=== PATIENT | male | born 1965 | race Caucasian/White ===

== ENCOUNTER 2023-02-09 07:23 | Emergency (ER) | payer BC, SELFPAY ==
[2023-02-09 07:27] VITALS: BP 150/93; PULSE 95; RESP 16; TEMP 36.2; O2SAT 100; BMI 28.7
--- NOTE | 2023-02-09 08:09 | ED.GENADULT ---
HPI - General Adult General Chief complaint: Laceration/Wound Stated complaint: Laceration L pointer Time Seen by Provider: 02/09/23 07:33 History of Present Illness HPI narrative: Patient is a 57 year white male who accidentally cut the tip of his index finger on the left-hand avulse some skin. He was using a knife in the kitchen. He is up-to-date on tetanus. He is otherwise quite healthy. No other problems. He bled a little bit now it has seemed to have stopped a bit. Related Data Home Medications Medication Instructions Recorded Confirmed amlodipine 5 mg tablet 5 mg PO QDAY 10/18/22 02/09/23 simvastatin 20 mg tablet 20 mg PO QHS 10/18/22 02/09/23 amlodipine 10 mg tablet 10 mg PO DAILY 02/09/23 02/09/23 Allergies Allergy/AdvReac Type Severity Reaction Status Date / Time No Known Drug Allergies Allergy Verified 02/09/23 07:32 Review of Systems Narrative: No history of diabetes or other infection problems PFSH PFSH Social History Smoking Status: Never smoker Do you use any of these nicotine containing products: None Second hand tobacco smoke exposure: No How often do you have a drink containing alcohol: never AUDIT-C Alcohol total score: 0 Non-prescribed substance use: denies use Exam Narrative: Exam Narrative: Objective: Vital signs as above Index finger shows an avulsion of skin on the lateral aspect of the tip of the finger very superficial. Minimal bleeding. Range of motion of finger normal Const: Vital Signs, click to edit/add: Vital Signs - 24 hr 02/09/23 07:27 Temperature 97.2 F L Pulse Rate [Right Pulse Oximeter] 95 Respiratory Rate 16 Blood Pressure [Ri ght Upper Arm] 150/93 H Pulse Oximetry 100 Oxygen Delivery Me thod Room Air Course Vital Signs Vital signs: Initial Vital Signs Temperature 97.2 F L 02/09/23 07:27 Temperature Source Temporal Artery Scan 02/09/23 07:27 Pulse Rate 95 02/09/23 07:27 Respiratory Rate 16 02/09/23 07:27 Blood Pressure 150/93 H 02/09/23 07:27 Blood Pressure Mean 112 H 02/09/23 07:27 Blood Pressure Position Sitting 02/09/23 07:27 Pulse Oximetry 100 02/09/23 07:27 Oxygen Delivery Method Room Air 02/09/23 07:27 Vital Signs Temperature 97.2 F L 02/09/23 07:27 Pulse Rate 95 02/09/23 07:27 Respiratory Rate 16 02/09/23 07:27 Blood Pressure 150/93 H 02/09/23 07:27 Pulse Oximetry 100 02/09/23 07:27 Oxygen Delivery Method Room Air 02/09/23 07:27 Temperature 97.2 F L 02/09/23 07:27 Pulse Rate 95 02/09/23 07:27 Respiratory Rate 16 02/09/23 07:27 Blood Pressure 150/93 H 02/09/23 07:27 Pulse Oximetry 100 02/09/23 07:27 Oxygen Delivery Method Room Air 02/09/23 07:27 Medical Decision Making MDM Narrative Medical decision making narrative: Patient is a 57 year white male up-to-date on tetanus avulsed the tip of his finger skin of the index finger. It does not appear deep or involving musculature. After sterile soaking, Surgicel was placed over the wound and covered with gauze. The patient tolerated this well. He is up-to-date on tetanus as mention. Will keep this on for 3 days and watch for infection redness. Return as needed. Then cover with a bandage after 3 days. Discharge Plan Discharge Clinical Impression: Avulsion of skin Patient Disposition: Home, Self-Care Condition: Improved Additional Instructions: Keep the dressing dry for 3 days, then may soak off in soapy water, cover with bandage as needed. Watch for redness or infection. Return as needed. Activity Level: No Restrictions Activity Detail: Light use of the left hand for 3 days Discharge Diet: Regular Prescriptions: No Action simvastatin 20 mg tablet 20 mg PO QHS amlodipine 5 mg tablet 5 mg PO QDAY amlodipine 10 mg tablet 10 mg PO DAILY Follow Up/Referrals: Provider,Not a Local [Primary Care Provider] - Stand Alone Forms: [employer] Info Instructions
== END 2023-02-09 08:06 | disposition home or self-care (01) ==
PROVIDERS: Emergency Provider Family Medicine
DX: S61.201A Unspecified open wound of left index finger without damage to nail, initial encounter (principal); W26.0XXA Contact with knife, initial encounter
CPT/HCPCS: 99282; 99283